=== PATIENT | male | born 1985 | race Caucasian/White ===

== ENCOUNTER 2017-05-05 19:15 | Emergency (ER) | payer BC ==
[2017-05-05 20:11] VITALS: BP 142/81
[2017-05-05] MEDS ORDERED: Ibuprofen TAB* 600 MG PO ONE (20:27)
[2017-05-05] MEDS ORDERED: Acetaminophen TAB* 325 MG PO ONE (20:29)
--- NOTE | 2017-05-05 20:39 | UC ---
Throat Pain/Nasal Ian HPI - HPI Summary HPI Summary: 32 male presents to [facility] with complaints of sore throat that began 2 day ago. Also associated with fever and headache. Patient states kids just recently diagnosed with strep. No other complaints. Some body aches and nausea. No PMHx. Took ibuprofen 600mg 2 hours ago. - History of Current Complaint Chief Complaint: UCGeneralIllness Stated Complaint: SORE THROAT Time Seen by Provider: 05/05/17 20:13 Hx Obtained From: Patient Onset/Duration: Sudden Onset, Lasting Days, Still Present, Worse Since Severity: Moderate Pain Intensity: 4 Pain Scale Used: 0-10 Numeric Cough: None Associated Signs & Symptoms: Positive: Dysphagia, Fever - Allergies/Home Medications Allergies/Adverse Reactions: Allergies Allergy/AdvReac Type Severity Reaction Status Date / Time Penicillins Allergy Hives Verified 05/05/17 20:07 Home Medications: Home Medications Ibuprofen TAB* [Advil TAB*] 600 mg PO Q6H PRN 05/05/17 [History Confirmed ] Phenylephrine-Chlorpheniramine [[place] Plus Cold &] 2 cap PO Q6H PRN 05/05 [History Confirmed 05/05/17] PMH/Surg Hx/FS Hx/Imm Hx - Additional Past Medical History Additional PMH: Denies PMHx no DM HTN or asthma - Surgical History Surgical History: Yes Surgery Procedure, Year, and Place: EXTRACTION OF RIGHT KIDNEY STONE - Family History Known Family History: Positive: None - Social History Alcohol Use: Occasionally Substance Use Type: None Smoking Status (MU): Former Smoker Type: Smokeless Tobacco Amount Used/How Often: 1 can daily Length of Time of Smoking/Using Tobacco: 15 Years When Did the Patient Quit Smoking/Using Tobacco: 06/2016 - Immunization History Most Recent Influenza Vaccination: Not the 2017/2017 Season Most Recent Tetanus Shot: 2009 Vaccination Up to Date: Yes Review of Systems Constitutional: Negative ENT: Sore Throat Respiratory: Negative Cardiovascular: Negative Musculoskeletal: Myalgia Neurological: Headache All Other Systems Reviewed And Are Negative: Yes Physical Exam Triage Information Reviewed: Yes Appearance: No Pain Distress, Well-Nourished Vital Signs: Initial Vital Signs Temp 101.8 F 05/05/17 20:05 Pulse 116 05/05/17 20:05 Resp 16 05/05/17 20:05 BP 142/81 05/05/17 20:05 Pulse Ox 97 05/05/17 20:05 tachycardia and temp noted Vital Signs Reviewed: Yes Eyes: Positive: Conjunctiva Clear ENT: Positive: Hearing grossly normal, Pharyngeal erythema, TMs normal, Tonsillar swelling, Tonsillar exudate, Other: - airway patent, uvula midline, no sign of peritonsillar abscess. Negative: Muffled/hoarse voice Dental: Positive: Cervical Lymphadenopathy. Negative: Percussion Tenderness @ Neck: Positive: Supple, Nontender Respiratory: Positive: Chest non-tender, Lungs clear, Normal breath sounds, No respiratory distress, No accessory muscle use Cardiovascular: Positive: RRR, No Murmur, Pulses Normal, Tachycardia Abdomen Description: Positive: Nontender, Soft Musculoskeletal Exam: Normal Neurological Exam: Normal Skin Exam: Normal Throat Pain/Nasal Course/Dx - Course Course Of Treatment: due to PE findings, complaints and positive sick contacts with diagnosed strep in household will treat without culture. given tylenol while in UC for fever. continue ibu/tylenol at home. fluids, rest. antibiotic. follow up pcp. educated on extremely contagious. aware of worsening signs and symptoms to watch out for. - Differential Dx/Diagnosis Differential Diagnosis/HQI/PQRI: Mononucleosis, Pharyngitis, Sinusitis, Tonsillitis, URI Provider Diagnoses: streptococcal pharyngitis Discharge - Discharge Plan Condition: Stable Disposition: HOME Prescriptions: Azithromycin TAB* [Zithromax TAB (Z-GM) 250 mg #6 tabs] 2 tab PO .TODAY, THEN 1 DAILY #1 gm Patient Education Materials: Strep Throat (ED) Referrals: MANUEL Ramey [Primary Care Provider] - Additional Instructions: Take prescribed medication as directed. Do not miss a dose. Drink plenty of fluids and get plenty of rest. Ibuprofen/tylenol for pain and fever. Cover mouth and wash hands frequently. Gargle with salt water. Chloraseptic spray to numb throat. Follow up PCP. Return if symptoms worsen or do not improve.
== END 2017-05-05 20:35 | disposition home or self-care (01) ==
LOC: UCCORT 19:15
DX: J02.0 Streptococcal pharyngitis (principal); Z87.891 Personal history of nicotine dependence
CPT/HCPCS: 99212; A9270-GY; G0463

== ENCOUNTER 2017-05-23 16:29 | Emergency (ER) | payer BC ==
[2017-05-23 17:07] VITALS: BP 140/87
--- NOTE | 2017-05-23 17:17 | UC ---
Throat Pain/Nasal Ian HPI - HPI Summary HPI Summary: Pt c/o nasal congestion, chest congestion, generalized malaise, sore throat, cough, and sinus tenderness X 1 week. Pt finished a Z-pac 1 week ago after being diagnosed with strep throat 1.5 weeks ago. - History of Current Complaint Chief Complaint: UCRespiratory Stated Complaint: CONGESTION/SORE THROAT Time Seen by Provider: 05/23/17 17:08 Hx Obtained From: Patient Onset/Duration: Gradual Onset, Lasting Days, Still Present, Worse Since - onset Severity: Moderate Cough: Nonproductive Associated Signs & Symptoms: Positive: Sinus Discomfort - Epiglottits Risk Factors Epiglottis Risk Factors: Negative - Allergies/Home Medications Allergies/Adverse Reactions: Allergies Allergy/AdvReac Type Severity Reaction Status Date / Time Penicillins Allergy Hives Verified 05/23/17 17:08 PMH/Surg Hx/FS Hx/Imm Hx Previously Healthy: Yes - Surgical History Surgical History: Yes Surgery Procedure, Year, and Place: EXTRACTION OF RIGHT KIDNEY STONE - Family History Known Family History: Positive: Cardiac Disease - Social History Occupation: Employed Full-time Lives: With Family Alcohol Use: Occasionally Substance Use Type: None Smoking Status (MU): Former Smoker Type: Smokeless Tobacco Amount Used/How Often: 1 can daily Length of Time of Smoking/Using Tobacco: 15 Years Have You Smoked in the Last Year: No When Did the Patient Quit Smoking/Using Tobacco: 06/2016 - Immunization History Most Recent Influenza Vaccination: Not the 2016/2017 Season Most Recent Tetanus Shot: 2009 Vaccination Up to Date: Yes Review of Systems Constitutional: Chills, Fatigue Skin: Negative Eyes: Negative ENT: Sore Throat, Sinus Congestion, Sinus Pain/Tenderness Respiratory: Cough Cardiovascular: Negative Gastrointestinal: Negative Genitourinary: Negative Motor: Negative Neurovascular: Negative Musculoskeletal: Negative Neurological: Headache Psychological: Negative Is Patient Immunocompromised?: No All Other Systems Reviewed And Are Negative: Yes Physical Exam Triage Information Reviewed: Yes Appearance: Ill-Appearing Vital Signs: Initial Vital Signs Temp 99.3 F 05/23/17 17:05 Pulse 66 05/23/17 17:05 Resp 14 05/23/17 17:05 BP 140/87 05/23/17 17:05 Pulse Ox 97 05/23/17 17:05 Vital Signs Reviewed: Yes Eye Exam: Normal ENT Exam: Other ENT: Positive: Nasal congestion, Other: - maxillary sinus tenderness Dental Exam: Normal Neck exam: Normal Respiratory Exam: Normal Cardiovascular Exam: Normal Musculoskeletal Exam: Normal Neurological Exam: Normal Psychological Exam: Normal Skin Exam: Normal Throat Pain/Nasal Course/Dx - Differential Dx/Diagnosis Differential Diagnosis/HQI/PQRI: Influenza, Sinusitis, Other - cough Provider Diagnoses: Sinusitis. cough Discharge - Discharge Plan Condition: Stable Disposition: HOME Prescriptions: Benzonatate CAP* [Tessalon 100 MG CAP*] 100 mg PO Q8H PRN #21 cap PRN Reason: Cough DOXYcycline CAP(*) [DOXYcycline 100MG CAP(*)] 100 mg PO BID #14 cap Pseudoephedrine-Guaifenesin [Mucinex D 60-600 mg] 1 tab PO DAILY #7 tab Patient Education Materials: Sinusitis (ED), Acute Cough (ED) Referrals: MANUEL Ramey [Primary Care Provider] - If Needed
== END 2017-05-23 17:33 | disposition home or self-care (01) ==
LOC: UCCORT 16:29
DX: J32.0 Chronic maxillary sinusitis (principal); R05 Cough; Z88.0 Allergy status to penicillin; Z87.891 Personal history of nicotine dependence
CPT/HCPCS: 99212; G0463

== ENCOUNTER 2017-07-24 10:37 | Emergency (ER) | payer BC ==
[2017-07-24 13:01] VITALS: BP 143/86
--- NOTE | 2017-07-24 13:12 | UC ---
Respiratory Complaint HPI - HPI Summary HPI Summary: Cough and congest, myalgias, low grade fever starting about 5 days ago. Not much improved. Cough is now worse. Non productive. - History of Current Complaint Chief Complaint: UCRespiratory Stated Complaint: COUGH UPPER RESPIRATORY Time Seen by Provider: 07/24/17 12:55 Hx Obtained From: Patient Onset/Duration: Gradual Onset, Lasting Days Timing: Constant Severity Initially: Moderate Severity Currently: Moderate Aggravating Factors: Deep Breaths, Recumbent Position Alleviating Factors: Nothing Associated Signs And Symptoms: Positive: Fever, Chills, URI, Nasal Congestion. Negative: Dyspnea, Hemoptysis, Calf Pain, Calf Swelling - Allergies/Home Medications Allergies/Adverse Reactions: Allergies Allergy/AdvReac Type Severity Reaction Status Date / Time Penicillins Allergy Hives Verified 07/24/17 12:56 PMH/Surg Hx/FS Hx/Imm Hx Previously Healthy: No - hx of asthma. - Surgical History Surgical History: Yes Surgery Procedure, Year, and Place: EXTRACTION OF RIGHT KIDNEY STONE - Family History Known Family History: Positive: None, Cardiac Disease - Social History Occupation: Employed Full-time Alcohol Use: Occasionally Substance Use Type: None Smoking Status (MU): Former Smoker Type: Smokeless Tobacco Amount Used/How Often: 1 can daily Length of Time of Smoking/Using Tobacco: 15 Years Have You Smoked in the Last Year: No When Did the Patient Quit Smoking/Using Tobacco: 06/2016 - Immunization History Most Recent Influenza Vaccination: Not the 2016/2017 Season Most Recent Tetanus Shot: 2009 Vaccination Up to Date: Yes Review of Systems ENT: Sore Throat, Sinus Congestion Respiratory: Cough All Other Systems Reviewed And Are Negative: Yes Physical Exam Triage Information Reviewed: Yes Appearance: Well-Appearing, No Pain Distress, Well-Nourished Vital Signs: Initial Vital Signs Temp 99.8 F 07/24/17 12:56 Pulse 102 07/24/17 12:56 Resp 16 07/24/17 12:56 BP 143/86 07/24/17 12:56 Pulse Ox 98 07/24/17 12:56 Vital Signs Reviewed: Yes Eyes: Positive: Conjunctiva Clear. Negative: Conjunctiva Inflamed ENT: Positive: Pharyngeal erythema, Nasal congestion, TMs normal, Uvula midline. Negative: Tonsillar swelling, Tonsillar exudate Neck: Positive: Supple, Nontender, No Lymphadenopathy Respiratory: Positive: Lungs clear, Normal breath sounds, No respiratory distress, No accessory muscle use. Negative: Respiratory distress, Decreased breath sounds, Accessory muscle use, Crackles, Rhonchi, Stridor Cardiovascular: Positive: RRR, No Murmur, Pulses Normal Abdomen Description: Positive: Nontender, No Organomegaly. Negative: Distended , Guarding Musculoskeletal: Positive: Strength Intact, ROM Intact, No Edema Neurological: Positive: Alert, Muscle Tone Normal. Negative: Fatigued Psychological: Positive: Age Appropriate Behavior Skin: Negative: rashes UC Diagnostic Evaluation - Laboratory O2 Sat by Pulse Oximetry: 98 Respiratory Course/Dx - Course Course Of Treatment: possible flu but this is day 5 and he has no risk factors for complications. Asthma has not been a problem for years. This is most c/w viral chest cold. supportive care described. - Differential Dx/Diagnosis Provider Diagnoses: uri. viral illness. Discharge - Discharge Plan Condition: Good Disposition: HOME Prescriptions: Azithromyxin GM (NF) [Z-Gm (Zithromax) 250 mg tabs #6] 2 tab PO .TODAY, THEN 1 DAILY #6 tab Patient Education Materials: Upper Respiratory Infection (ED) Referrals: MANUEL Ramey [Primary Care Provider] - Additional Instructions: Mucinex over the counter and if not better on day 9 or 10 start azithromycin antibiotic.
== END 2017-07-24 13:15 | disposition home or self-care (01) ==
LOC: UCCORT 10:37
DX: J06.9 Acute upper respiratory infection, unspecified (principal); B34.9 Viral infection, unspecified; Z88.0 Allergy status to penicillin; Z87.891 Personal history of nicotine dependence
CPT/HCPCS: 99212; G0463

== ENCOUNTER 2017-12-10 08:09 | Emergency (ER) | payer BC ==
[2017-12-10 08:24] VITALS: BP 148/71
--- NOTE | 2017-12-10 08:39 | ED ---
Throat Pain/Nasal Congestion - HPI Summary HPI Summary: 32 yr old male with the complaint of sinus pressure, post nasal drip, cough, throat irritation. Onset was two weeks ago. Denies fever, chills, sob. He is a non smoker. He works as a metal fabricator welder. He has no other complaints. - History of Current Complaint Chief Complaint: UCGeneralIllness Time Seen by Provider: 12/10/17 08:30 - Allergies/Home Medications Allergies/Adverse Reactions: Allergies Allergy/AdvReac Type Severity Reaction Status Date / Time Penicillins Allergy Hives Verified 12/10/17 08:20 Home Medications: Home Medications Chlorphenir/Phenyleph/Aspirin [Ketur[place] Plus Cold 2-7.8-325 mg] 2 tab PO Q4H PRN 12/10/17 [History Confirmed 12/10/17] PMH/Surg Hx/FS Hx/Imm Hx Respiratory History: Reports: Hx Asthma - Surgical History Surgery Procedure, Year, and Place: EXTRACTION OF RIGHT KIDNEY STONE Infectious Disease History: No Infectious Disease History: Denies: Traveled Outside the [place] in Last 30 Days - Family History Known Family History: Positive: None, Cardiac Disease - Social History Occupation: Employed Full-time Alcohol Use: Occasionally Substance Use Type: Reports: None Smoking Status (MU): Former Smoker Type: Smokeless Tobacco Amount Used/How Often: 1 can daily Length of Time of Smoking/Using Tobacco: 2 cans per day x 15 Years Have You Smoked in the Last Year: No Review of Systems Constitutional: Negative Positive: Nasal Discharge, Other - sinus pressure Positive: Cough All Other Systems Reviewed And Are Negative: Yes Physical Exam Triage Information Reviewed: Yes Vital Signs On Initial Exam: Initial Vitals Temp Pulse Resp BP Pulse Ox 98.8 F 96 16 148/71 100 12/10/17 08:19 12/10/17 08:19 12/10/17 08:19 12/10/17 08:19 12/10/17 08:19 Vital Signs Reviewed: Yes Appearance: Positive: Well-Appearing, No Pain Distress Skin: Positive: Warm, Skin Color Reflects Adequate Perfusion Head/Face: Positive: Normal Head/Face Inspection Eyes: Positive: EOMI ENT: Positive: Pharynx normal, TMs normal, Sinus tenderness Respiratory/Lung Sounds: Positive: Clear to Auscultation, Breath Sounds Present Cardiovascular: Positive: RRR. Negative: Murmur Abdomen Description: Positive: Nontender Musculoskeletal: Positive: Strength/ROM Intact Neurological: Positive: Sensory/Motor Intact, Alert, Oriented to Person Place, Time, CN Intact II-III Psychiatric: Positive: Normal - Billy Coma Scale Best Eye Response: 4 - Spontaneous Best Motor Response: 6 - Obeys Commands Best Verbal Response: 5 - Oriented Coma Scale Total: 15 Diagnostics - Vital Signs Vital Signs Temp Pulse Resp BP Pulse Ox 12/10/17 08:19 98.8 F 96 16 148/71 100 - Laboratory Lab Statement: Any lab studies that have been ordered have been reviewed, and results considered in the medical decision making process. EENT Course/Dx - Course Course Of Treatment: 32 yr old with sinusitis. Rx doxy. FU with PMD for BP recheck. - Diagnoses Provider Diagnoses: Sinusitis, Hypertension Discharge - Sign-Out/Discharge Documenting (check all that apply): Discharge/Admit/Transfer - Discharge Plan Condition: Good Disposition: HOME Prescriptions: Doxycycline Monohydrate 100 mg PO BID #20 capsule Patient Education Materials: Sinusitis (ED), Hypertension (ED) Referrals: MANUEL Petty [Primary Care Provider] - 2 Days - Billing Disposition and Condition Condition: GOOD Disposition: HOME
== END 2017-12-10 08:44 | disposition home or self-care (01) ==
LOC: UCCORT 08:09
DX: J32.9 Chronic sinusitis, unspecified (principal); I10 Essential (primary) hypertension; Z88.0 Allergy status to penicillin; F17.220 Nicotine dependence, chewing tobacco, uncomplicated
CPT/HCPCS: 99212; G0463

== ENCOUNTER 2019-04-17 15:05 | Emergency (ER) | payer BC ==
[2019-04-17 16:10] VITALS: BP 136/80
--- NOTE | 2019-04-17 16:20 | UC ---
Throat Pain/Nasal Ian HPI - HPI Summary HPI Summary: 33-year-old male who has had head congestion and sinus pressure over the past 4 days. He denies any fever or chills. - History of Current Complaint Chief Complaint: UCRespiratory Stated Complaint: SINUS PRESSURE Time Seen by Provider: 04/17/19 16:06 Hx Obtained From: Patient Onset/Duration: Gradual Onset Severity: Mild Pain Intensity: 6 Cough: Nonproductive Associated Signs & Symptoms: Positive: Sinus Discomfort, Nasal Discharge Related History: Seasonal Allergies - Allergies/Home Medications Allergies/Adverse Reactions: Allergies Allergy/AdvReac Type Severity Reaction Status Date / Time Penicillins Allergy Hives Verified 04/17/19 16:04 PMH/Surg Hx/FS Hx/Imm Hx Previously Healthy: Yes - Surgical History Surgical History: Yes Surgery Procedure, Year, and Place: EXTRACTION OF RIGHT KIDNEY STONE - Family History Known Family History: Positive: Cardiac Disease - Social History Occupation: Employed Full-time Alcohol Use: Occasionally Substance Use Type: None Smoking Status (MU): Former Smoker Type: Smokeless Tobacco Amount Used/How Often: 1 can daily Length of Time of Smoking/Using Tobacco: 2 cans per day x 15 Years Have You Smoked in the Last Year: No When Did the Patient Quit Smoking/Using Tobacco: 06/2016 - Immunization History Most Recent Influenza Vaccination: Not the 2016/2017 Season Most Recent Tetanus Shot: 2009 Vaccination Up to Date: Yes Review of Systems All Other Systems Reviewed And Are Negative: Yes ENT: Positive: Nasal Discharge, Sinus Congestion, Sinus Pain/Tenderness Respiratory: Positive: Cough - Occasional nonproductive cough Is Patient Immunocompromised?: No Physical Exam Triage Information Reviewed: Yes Appearance: Well-Appearing, No Pain Distress, Well-Nourished Vital Signs: Initial Vital Signs Temp 98.8 F 04/17/19 16:05 Pulse 75 04/17/19 16:05 Resp 16 04/17/19 16:05 BP 136/80 04/17/19 16:05 Pulse Ox 98 04/17/19 16:05 Vital Signs Reviewed: Yes Eyes: Positive: Conjunctiva Clear ENT: Positive: Pharynx normal, Nasal drainage - Clear nasal coryza, TMs normal, Uvula midline Neck: Positive: Supple, Nontender, No Lymphadenopathy Respiratory: Positive: Lungs clear, Normal breath sounds, No respiratory distress, No accessory muscle use Cardiovascular: Positive: RRR, No Murmur, Pulses Normal, Brisk Capillary Refill Musculoskeletal Exam: Normal Neurological Exam: Normal Psychological Exam: Normal Skin Exam: Normal Throat Pain/Nasal Course/Dx - Course Course Of Treatment: Patient is comfortable here. He does have a history of seasonal allergies therefore I'm going to give him Flonase to try to drain some of the sinus congestion. At this point time he does not need an antibiotic however he is going to return or follow-up with his primary care provider if he has any worsening symptoms in 4 or 5 days. - Differential Dx/Diagnosis Provider Diagnosis: URI (upper respiratory infection) Discharge ED - Sign-Out/Discharge Documenting (check all that apply): Patient Departure All imaging exams completed and their final reports reviewed: No Studies - Discharge Plan Condition: Good Disposition: HOME Prescriptions: Fluticasone NASAL SPRAY 50MCG* [Flonase NASAL SPRAY 50MCG*] 2 spray BOTH NARES DAILY 7 Days #1 btl Patient Education Materials: Upper Respiratory Infection (DC) Referrals: Kenya Christina CLINICAL LAW PROFESSOR [Primary Care Provider] - Additional Instructions: Increase fluids, follow-up with your primary care provider in 4 or 5 days if no improvement or if worsening symptoms. - Billing Disposition and Condition Condition: GOOD Disposition: Home
== END 2019-04-17 16:25 | disposition home or self-care (01) ==
LOC: UCCORT 15:05
DX: J06.9 Acute upper respiratory infection, unspecified (principal); Z88.0 Allergy status to penicillin; Z87.891 Personal history of nicotine dependence
CPT/HCPCS: 99212; G0463

== ENCOUNTER 2019-08-27 09:19 | Emergency (ER) | payer BC ==
[2019-08-27 10:41] VITALS: BP 135/88
[2019-08-27 11:06] LABS: Influenza B Molecular POSITIVE (Negative)
--- NOTE | 2019-08-27 11:09 | UC ---
Throat Pain/Nasal Ian HPI - HPI Summary HPI Summary: 34 yo male with sore throat x 4 days f/c rare cough + nasal congestion headache and myalgias no n/v/d - History of Current Complaint Chief Complaint: UCRespiratory Stated Complaint: SORE THROAT, FEVER Time Seen by Provider: 08/27/19 10:38 Hx Obtained From: Patient Onset/Duration: Sudden Onset Severity: Mild Pain Intensity: 5 Pain Scale Used: 0-10 Numeric Associated Signs & Symptoms: Positive: Nasal Discharge, Fever - Epiglottits Risk Factors Epiglottis Risk Factors: Negative - Allergies/Home Medications Allergies/Adverse Reactions: Allergies Allergy/AdvReac Type Severity Reaction Status Date / Time Penicillins Allergy Hives Verified 08/27/19 10:41 PMH/Surg Hx/FS Hx/Imm Hx Previously Healthy: Yes GI/ History: Kidney Stones - Surgical History Surgical History: Yes Surgery Procedure, Year, and Place: EXTRACTION OF RIGHT KIDNEY STONE - Family History Known Family History: Positive: Cardiac Disease, Non-Contributory - Social History Alcohol Use: Occasionally Substance Use Type: None Smoking Status (MU): Former Smoker Type: Smokeless Tobacco Amount Used/How Often: 1 can daily Length of Time of Smoking/Using Tobacco: 2 cans per day x 15 Years Have You Smoked in the Last Year: No When Did the Patient Quit Smoking/Using Tobacco: 06/2016 - Immunization History Most Recent Influenza Vaccination: Not the 2016/2017 Season Most Recent Tetanus Shot: 2009 Vaccination Up to Date: Yes Review of Systems All Other Systems Reviewed And Are Negative: Yes Constitutional: Positive: Fever, Chills, Fatigue Skin: Positive: Negative Eyes: Positive: Negative ENT: Positive: Sore Throat - ++++, Nasal Discharge Respiratory: Positive: Cough Cardiovascular: Positive: Negative Gastrointestinal: Positive: Negative Genitourinary: Positive: Negative Motor: Positive: Negative Neurovascular: Positive: Negative Musculoskeletal: Positive: Myalgia Psychological: Positive: Negative Physical Exam Triage Information Reviewed: Yes Appearance: Well-Appearing, No Pain Distress, Well-Nourished Vital Signs: Initial Vital Signs Temp 100.2 F 08/27/19 10:37 Pulse 103 08/27/19 10:37 Resp 18 08/27/19 10:37 BP 135/88 08/27/19 10:37 Pulse Ox 98 08/27/19 10:37 Vital Signs Reviewed: Yes Eyes: Positive: Conjunctiva Clear ENT: Positive: Hearing grossly normal, Pharyngeal erythema, Nasal congestion, Nasal drainage, Tonsillar swelling, Uvula midline. Negative: Trismus, Muffled voice, Hoarse voice Dental Exam: Normal Neck: Positive: Supple, Nontender, No Lymphadenopathy Respiratory: Positive: Lungs clear, Normal breath sounds, No respiratory distress, No accessory muscle use Cardiovascular: Positive: RRR, No Murmur Musculoskeletal: Positive: ROM Intact, No Edema Neurological: Positive: Alert Psychological Exam: Normal Skin Exam: Normal Throat Pain/Nasal Course/Dx - Course Course Of Treatment: influenza B+ strep (-) - Differential Dx/Diagnosis Provider Diagnosis: Influenza B Discharge ED - Sign-Out/Discharge Documenting (check all that apply): Patient Departure All imaging exams completed and their final reports reviewed: No Studies - Discharge Plan Condition: Stable Disposition: HOME Patient Education Materials: Influenza (ED) Referrals: Kenya Christina NP [Primary Care Provider] - - Billing Disposition and Condition Condition: STABLE Disposition: Home
== END 2019-08-27 11:32 | disposition home or self-care (01) ==
LOC: UCCORT 09:19
DX: J10.1 Influenza due to other identified influenza virus with other respiratory manifestations (principal); Z88.0 Allergy status to penicillin; Z87.891 Personal history of nicotine dependence
CPT/HCPCS: 87651; 99212; G0463